=== PATIENT | male | born 1965 | race Caucasian/White ===

== ENCOUNTER 2022-09-12 12:26 | Emergency (ER) | payer OTHER ==
[~2022-09-12] VITALS: Ht 180.3 cm; Wt 104.3 kg
[2022-09-12] MEDS ORDERED: CEPH500T PO (12:56)
[2022-09-12] MEDS ORDERED: SULF1TAB48 PO (12:56)
--- NOTE | 2022-09-12 13:00 | NUR ---
57 years old male presents to er with left buttock abcess, seen evaluated by Dr Garg condition stable d/c home with instructions after care reviewed understood.
[2022-09-12 13:02] VITALS: BP 130/70
== END 2022-09-12 13:05 | disposition home or self-care (01) ==
LOC: ER 12:26
DX: L02.31 Cutaneous abscess of buttock (principal)
CPT/HCPCS: A4663

== ENCOUNTER 2023-01-09 10:53 | Emergency (ER) | payer OTHER ==
[~2023-01-09] VITALS: Ht 162.6 cm; Wt 100.7 kg
[~2023-01-09 10:53] MED LIST: CEPH500T PO; SULF1TAB48 PO
[2023-01-09] MEDS ORDERED: HYDR25SU33 RC (11:13)
[2023-01-09 11:20] VITALS: BP 131/95; O2SAT 98
== END 2023-01-09 11:20 | disposition home or self-care (01) ==
LOC: ER 10:53
DX: K62.89 Other specified diseases of anus and rectum (principal); Z79.899 Other long term (current) drug therapy
CPT/HCPCS: A4663

== ENCOUNTER 2023-05-01 11:07 | Emergency (ER) | payer OTHER ==
[~2023-05-01] VITALS: Ht 180.3 cm; Wt 96.6 kg
[~2023-05-01 11:07] MED LIST changes: +HYDR25SU33 RC
[2023-05-01 11:14] VITALS: O2SAT 99
[2023-05-01] MEDS ORDERED: SULF1TAB48 PO (11:44)
[2023-05-01] MEDS ORDERED: CEFU500T66 PO (11:44)
== END 2023-05-01 11:51 | disposition home or self-care (01) ==
LOC: ER 11:07
DX: L02.416 Cutaneous abscess of left lower limb (principal); Z79.899 Other long term (current) drug therapy
CPT/HCPCS: A4606; A4663

== ENCOUNTER 2024-07-09 13:23 | Emergency (ER) | payer OTHER ==
[~2024-07-09] VITALS: Ht 180.3 cm; Wt 93.0 kg
[~2024-07-09 13:23] MED LIST changes: +CEFU500T66 PO
[2024-07-09] MEDS ORDERED: ASPI81TA31 PO (13:33)
[2024-07-09] MEDS ORDERED: CLOP75TA15 PO (13:33)
[2024-07-09] MEDS ORDERED: CEFAZOLIN 1 G VIAL ONE (14:37)
[2024-07-09] MEDS ORDERED: CEFD300C3 PO (14:40)
[2024-07-09] MEDS: CEFAZOLIN 1 G in IV DEXTROSE 5% 50 ML IV ONE (14:56)
[2024-07-09 15:37] VITALS: BP 135/74; O2SAT 98
[2024-07-11] MEDS ORDERED: METO-358 PO (13:15)
[2024-07-11] MEDS ORDERED: ROSU40TA23 PO (13:15)
[2024-07-11] MEDS ORDERED: ASCO500C18 PO (13:16)
[2024-07-11] MEDS ORDERED: NITR0.4T48 SL (13:16)
[2024-07-11] MEDS ORDERED: MULT1CAP34 PO (13:16)
[2024-07-11] MEDS ORDERED: CLOT30CR24 TP (14:09)
[2024-07-11] MEDS ORDERED: VALA10002 PO (14:56)
[2024-07-11] MEDS ORDERED: PRED50TA PO (14:56)
== END 2024-07-09 15:38 | disposition home or self-care (01) ==
LOC: ER 13:23
DX: L03.012 Cellulitis of left finger (principal); T50.905A Adverse effect of unspecified drugs, medicaments and biological substances, initial encounter; Z79.82 Long term (current) use of aspirin; Z95.1 Presence of aortocoronary bypass graft; Z88.1 Allergy status to other antibiotic agents; Z88.2 Allergy status to sulfonamides; Y92.89 Other specified places as the place of occurrence of the external cause
CPT/HCPCS: 99284; 96365; 87070; 87075; J0690